=== PATIENT | female | born 1970 | race Caucasian/White ===

== ENCOUNTER 2017-06-03 15:10 | Emergency (ER) | payer SELFPAY ==
[2017-06-03] MEDS: ACETAMINOPHEN 325 MG TAB PO (15:45)
== END 2017-06-03 17:07 | disposition home or self-care (01) ==
LOC: FTE 15:10
DX: R51 Headache (principal); M54.2 Cervicalgia; M54.9 Dorsalgia, unspecified
CPT/HCPCS: 70450; 72040; 72072; 81025; 99284-25